=== PATIENT | female | born 1960 | race Hispanic/Latino ===

== ENCOUNTER → 2023-05-07 | Outpatient (CLI) | payer OTHER, MEDICARE ==
[~2023-05-07] MED LIST: CLON2TAB11 PO; LANS30CA55 PO; SERT50TA PO; SUCR1TAB2 PO
== END | disposition home or self-care (01) ==
LOC: RAH 13:14
PROVIDERS: ATTEND Internal Medicine
DX: Z12.31 Encounter for screening mammogram for malignant neoplasm of breast (principal)
CPT/HCPCS: 77067